=== PATIENT | female | born 1990 | race Caucasian/White ===

== ENCOUNTER 2017-09-01 16:40 | Outpatient (CLI) | END 2017-09-01 18:59 | disposition home or self-care (01) ==

== ENCOUNTER 2017-09-03 11:20 | Outpatient (CLI) | END 2017-09-03 15:50 | disposition home or self-care (01) ==

== ENCOUNTER 2017-09-08 20:30 | Inpatient (IN) | END 2017-09-11 16:59 | disposition home or self-care (01) | DRG 775 ==